=== PATIENT | female | born 1990 | race American Indian/Alaskan Native ===

== ENCOUNTER 2017-02-15 15:38 | Emergency (ER) | payer MEDICAID, OTHER ==
[2017-02-15 15:58] VITALS: BP 134/65; PULSE 87; RESP 16; TEMP 98.4; O2SAT 99
--- NOTE | 2017-02-15 16:49 | ED PDOC ---
HPI: General Adult Time Seen by Provider: 02/15/17 16:05 Chief Complaint (Nursing): Flu-like Symptoms Chief Complaint (Provider): Cough on.off for a few weeks, fever yesterday History Per: Patient History/Exam Limitations: no limitations Onset/Duration Of Symptoms: Days Have you had recent travel within the past 21 days to any of the following countries: [place], [place], [place] or [place]?: No Current Symptoms Are (Timing): Still Present Additional Complaint(s): Pt reports back pain only when coughing. Yellow phelgm. Past Medical History Reviewed: Historical Data, Nursing Documentation, Vital Signs Vital Signs: Last Vital Signs Temp 98.4 F 02/15/17 15:56 Pulse 87 02/15/17 15:56 Resp 16 02/15/17 15:56 BP 134/65 02/15/17 15:56 Pulse Ox 99 02/15/17 15:56 - Medical History PMH: No Chronic Diseases - Surgical History Surgical History: No Surg Hx - Family History Family History: States: No Known Family Hx - Living Arrangements Living Arrangements: With Family - Social History Current smoker - smoking cessation education provided: No Alcohol: None Drugs: Denies - Home Medications Home Medications: Ambulatory Orders Medication Instructions Recorded Albuterol HFA [Ventolin HFA 90 1 puff IH BID PRN #1 unit 02/15/17 mcg/actuation (8 g)] Azithromycin 250 mg PO DAILY #6 tab 02/15/17 - Allergies Allergies/Adverse Reactions: Allergies Allergy/AdvReac Type Severity Reaction Status Date / Time tramadol Allergy ANAPHYLAXIS Verified 02/15/17 15:55 acetaminophen [From Percocet] AdvReac DIZZINESS Verified 02/15/17 15:55 oxycodone [From Percocet] AdvReac DIZZINESS Verified 02/15/17 15:55 Review of Systems ROS Statement: Except As Marked, All Systems Reviewed And Found Negative Constitutional: Positive for: Fever, Chills, Sweats, Malaise Respiratory: Positive for: Cough, Shortness of Breath Physical Exam - Reviewed Nursing Documentation Reviewed: Yes Vital Signs Reviewed: Yes - Physical Exam Appears: Positive for: Well, Non-toxic, No Acute Distress Head Exam: Positive for: ATRAUMATIC, NORMAL INSPECTION, NORMOCEPHALIC Skin: Positive for: Normal Color, Warm, DRY Eye Exam: Positive for: Normal appearance ENT: Positive for: Normal ENT Inspection Neck: Positive for: Normal, Painless ROM Cardiovascular/Chest: Positive for: Regular Rate, Rhythm Respiratory: Positive for: Normal Breath Sounds. Negative for: Accessory Muscle Use, Respiratory Distress Gastrointestinal/Abdominal: Positive for: Normal Exam, Bowel Sounds, Soft Back: Positive for: Normal Inspection Extremity: Positive for: Normal ROM Neurologic/Psych: Positive for: Alert, Oriented - ECG O2 Sat by Pulse Oximetry: 99 Pulse Ox Interpretation: Normal Disposition - Clinical Impression Clinical Impression: Acute bronchitis - Patient ED Disposition Is Patient to be Admitted: No Counseled Patient/Family Regarding: Diagnosis, Need For Followup, Rx Given - Disposition Disposition: Routine/Home Disposition Time: 16:51 Condition: GOOD Prescriptions: Albuterol HFA [Ventolin HFA 90 mcg/actuation (8 g)] 1 puff IH BID PRN #1 unit PRN Reason: Cough Azithromycin 250 mg PO DAILY #6 tab Instructions: Acute Bronchitis (ED) Forms: [employer] ([place]orean)
== END 2017-02-15 17:42 | disposition home or self-care (01) ==
LOC: H.ER 15:38
DX: J20.9 Acute bronchitis, unspecified (principal); Z88.5 Allergy status to narcotic agent